=== PATIENT | female | born 1980 | race Caucasian/White ===

== ENCOUNTER 2021-05-05 05:32 | Emergency (ER) | payer OTHER ==
[~2021-05-05 05:32] MED LIST: ALBUTEROL2.5 MG/3 M INH; BENTYL 20MG TAB20 MG PO; CELEXA10 MG PO; CELEXA20 MG PO; FLEXERIL 10 MG10 MG PO; FLEXERIL PO; HYDROCODON-ACE1 EAC6 PO; IBUPROFEN600 MG PO; IBUPROFEN800 MG PO; IPRATROPIU0.2 MG/1 M INH; LORTAB 5-325 M1 EACH PO; MOBIC7.5 MG PO; MULTIPLE VITAM1 EAC2 PO; NORCO 10-325 T1 EACH PO; PREDNISONE20 MG PO; PROVENTIL HFA6.7 GM INH; ROBITUSSIN DM UD5 ML PO; TESSALON PERLE100 MG PO; ZOFRAN ODT 4 MG4 MG PO; ZOFRAN4 MG PO
[2021-05-05] MEDS ORDERED: ERYTHROMYCIN O3.5 GM OU (07:17)
[2021-05-05] MEDS ORDERED: PREDNISONE 50 M50 MG PO (07:17)
== END 2021-05-05 07:24 | disposition home or self-care (01) ==
LOC: ER1 05:32
DX: T78.40XA Allergy, unspecified, initial encounter (principal); X58.XXXA Exposure to other specified factors, initial encounter; F17.200 Nicotine dependence, unspecified, uncomplicated
CPT/HCPCS: 96372; 99283; J1200; J2930